=== PATIENT | female | born 1970 | race Caucasian/White ===

== ENCOUNTER 2022-09-08 13:35 | Emergency (ER) | payer MEDICAID, OTHER ==
[~2022-09-08] VITALS: Ht 160 cm; Wt 59.9 kg
[2022-09-08 13:40] VITALS: BP 114/65; TEMP 98.1
[2022-09-08] MEDS ORDERED: DIPH28.34 TP (13:44)
== END 2022-09-08 13:58 | disposition home or self-care (01) ==
LOC: ER 13:41
DX: S50.362A Insect bite (nonvenomous) of left elbow, initial encounter (principal); Z79.899 Other long term (current) drug therapy; W57.XXXA Bitten or stung by nonvenomous insect and other nonvenomous arthropods, initial encounter; Y93.89 Activity, other specified; Y92.89 Other specified places as the place of occurrence of the external cause; Y99.8 Other external cause status

== ENCOUNTER 2023-02-10 17:31 | Emergency (ER) | payer OTHER ==
[~2023-02-10] VITALS: Ht 157.5 cm; Wt 61.2 kg
[~2023-02-10 17:31] MED LIST: DIPH28.34 TP
[2023-02-10 17:51] VITALS: BP 112/60; TEMP 98.2; O2SAT 99
[2023-02-10] MEDS ORDERED: ACETAMINOPHEN ES 500 MG TABLET ONE (19:05)
[2023-02-10] MEDS ORDERED: CYCLOBENZAPRINE 10 MG TABLET ONE (19:06)
[2023-02-10] MEDS ORDERED: ACETAMINOPHEN ES 500 MG TABLET PO ONE (19:30)
[2023-02-10] MEDS ORDERED: CYCLOBENZAPRINE 10 MG TABLET PO ONE (19:30)
[2023-02-10] MEDS ORDERED: CYCL10TA9 PO (20:16)
== END 2023-02-10 20:27 | disposition home or self-care (01) ==
LOC: ER 17:38
DX: S76.012A Strain of muscle, fascia and tendon of left hip, initial encounter (principal); X58.XXXA Exposure to other specified factors, initial encounter; Y93.89 Activity, other specified; Y92.89 Other specified places as the place of occurrence of the external cause; Y99.8 Other external cause status
CPT/HCPCS: 73502